=== PATIENT | male | born 1950 | race Caucasian/White ===

== ENCOUNTER 2018-08-29 13:20 | Emergency (ER) | payer MEDICARE ==
[2018-08-29] MEDS ORDERED: KETOROLAC TROMETHAMINE 30MG/ML ONE (14:16)
[2018-08-29] MEDS ORDERED: DEXAMETHASONE SOD PHOSPHATE 10MG/ML 1ML VIAL ONE (14:16)
[2018-08-29] MEDS ORDERED: LIDOCAINE 5% TOPICAL PATCH TP ONE (14:16)
== END 2018-08-29 15:29 | disposition home or self-care (01) ==
LOC: EDH 13:20
DX: M25.551 Pain in right hip (principal); I10 Essential (primary) hypertension; Z72.0 Tobacco use
CPT/HCPCS: 73502; 96372 ×2; 99284; J1100; J1885

== ENCOUNTER → 2019-08-02 | Outpatient (CLI) | payer MEDICARE, OTHER ==
[~2019-08-02] MED LIST: IOHEXOL-350 75 ML VIAL IV ONE
== END | disposition home or self-care (01) ==
LOC: RAH 08:54
PROVIDERS: ATTEND Internal Medicine Gastroenterology
DX: N28.1 Cyst of kidney, acquired (principal); K70.30 Alcoholic cirrhosis of liver without ascites; K76.6 Portal hypertension; R93.3 Abnormal findings on diagnostic imaging of other parts of digestive tract
CPT/HCPCS: 74170; Q9967

== ENCOUNTER 2019-09-11 08:25 | Emergency (ER) | payer OTHER ==
[2019-09-11] MEDS ORDERED: LIDOCAINE HCL-MPF 1% 2ML VIAL ONE (08:47)
[2019-09-11] MEDS ORDERED: KETOROLAC TROMETHAMINE 60 MG/2 ML VIAL ONE (08:47)
[2019-09-11] MEDS ORDERED: CEFTRIAXONE SODIUM 1 GM ONE (08:47)
== END 2019-09-11 09:24 | disposition home or self-care (01) ==
LOC: EDH 08:25
DX: L03.114 Cellulitis of left upper limb (principal); I10 Essential (primary) hypertension; Z72.0 Tobacco use
CPT/HCPCS: 96372 ×2; 99284; J0696; J1885; J3490

== ENCOUNTER 2020-02-24 20:42 | Inpatient (IN) | payer OTHER ==
[~2020-02-24] VITALS: Ht 182.9 cm; Wt 67.8 kg
[2020-02-24] MEDS ORDERED: CEFTRIAXONE SODIUM 2 GM VIAL ONE (21:02)
[2020-02-24] MEDS ORDERED: SODIUM CHLORIDE 0.9% 100 ML IV ONE (21:03)
[2020-02-24 21:09] LABS: BASOPHILS % (AUTO) 0.4 % (0.0-5.0); EOSINOPHILS % (AUTO) 0.4 % (0.0-8.0); HEMATOCRIT 42.9 % (42-54); LYMPHOCYTES % (AUTO) 19.8 % (21.0-51.0); MEAN CORPUSCULAR HEMOGLOBIN 31.4 pg (27.0-33.0); MEAN CORPUSCULAR HGB CONC 35.4 g/dL (32.0-36.0); MEAN CORPUSCULAR VOLUME 88.6 fL (79-99); MONOCYTES % (AUTO) 15.7 % (3.0-13.0); NEUTROPHILS % (AUTO) 63.4 % (40.0-77.0); PLATELET COUNT (AUTO) 103 K/uL (130-400); RED BLOOD CELL COUNT(AUTO) 4.84 MIL/uL (4.50-6.20); RED CELL DISTRIBUTION WIDTH 12.7 % (11.0-15.5); WHITE BLOOD COUNT (AUTO) 11.6 K/uL (4.8-10.8)
[2020-02-24 21:18] LABS: INR 1.03 (0.85-1.15); PROTHROMBIN TIME 11.1 SEC (9.6-11.6)
[2020-02-24 21:26] LABS: ALBUMIN 3.4 g/dL (3.5-5.0); BILIRUBIN,TOTAL 1.9 mg/dL (0.2-1.0); CREATININE 0.9 mg/dL (0.5-1.5); POTASSIUM 3.7 mmol/L (3.5-5.1); TOTAL PROTEIN, SERUM 8.4 g/dL (6.0-8.3)
[2020-02-24 21:33] LABS: PARTIAL THROMBOPLASTIN TIME 25.7 SEC (26.3-35.5)
[2020-02-24] MEDS ORDERED: KETOROLAC TROMETHAMINE 15MG/ML ONE (21:47)
[2020-02-24 22:13] LABS: APPEARANCE,URINE Clear (CLEAR); BILIRUBIN,URINE Negative (NEGATIVE); COLOR,URINE Dark Yellow (YELLOW); GLUCOSE, URINE (UA) 250 mg/dL (NEGATIVE); KETONES,URINE Negative (NEGATIVE); LEUKOCYTE ESTERASE ,URINE Small (NEGATIVE); NITRATE,URINE Negative (NEGATIVE); OCCULT BLOOD,URINE Negative (NEGATIVE); PH,URINE 7.5 (5.0-8.0); PROTEIN,URINE Trace mg/dL (NEGATIVE)
[2020-02-24 22:30] LABS: BACTERIA,URINE Rare /HPF (None Seen); RBC,URINE 0-1 /HPF (0-1)
[2020-02-24 22:31] LABS: MUCUS,URINE Rare LPF (None Seen); SQUAMOUS EPITHELIAL CELL,UR Rare /HPF (0-2)
[2020-02-24 22:50] VITALS: BP 127/84
[2020-02-24] MEDS ORDERED: NITROGLYCERIN 0.4 MG SL TAB SL PRN (23:15)
[2020-02-24] MEDS: SODIUM CHLORIDE 0.9% 1000ML 1,000 ML IV SCH (23:15)
[2020-02-24] MEDS ORDERED: LIDOCAINE HCL-MPF 1% 2ML VIAL IJ PRN (23:15)
[2020-02-24] MEDS ORDERED: ACETAMINOPHEN 325 MG TAB PO PRN ×2 (23:15)
[2020-02-24] MEDS ORDERED: LACTULOSE 20 GM/30 ML UDCUP PO ONE (23:15)
[2020-02-24] MEDS ORDERED: MAGNESIUM 2GM PREMIX 50ML 50 ML IV PRN (23:15)
[2020-02-24] MEDS ORDERED: DIPHENHYDRAMINE HCL 25 MG CAPSULE PO PRN (23:15)
[2020-02-24] MEDS ORDERED: ONDANSETRON HCL 4 MG/2 ML VIAL IV PRN (23:15)
[2020-02-24] MEDS ORDERED: POTASSIUM CHLORIDE 20MEQ/100ML 100 ML IV PRN (23:15)
[2020-02-24] MEDS ORDERED: MORPHINE SULFATE 2 MG/ML 1ML SYG ONE (23:29)
[2020-02-25 00:50] LABS: AMPHET/METH SCREEN,URINE NEGATIVE (NEGATIVE); BARBITURATE SCREEN, URINE NEGATIVE (NEGATIVE); BENZODIAZEPINES SCREEN,URINE NEGATIVE (NEGATIVE); CANNABINOID SCREEN,URINE NEGATIVE (NEGATIVE); COCAINE SCREEN,URINE POSITIVE (NEGATIVE); OPIATE SCREEN,URINE NEGATIVE (NEGATIVE); PHENCYCLIDINE SCREEN,URINE NEGATIVE (NEGATIVE)
--- NOTE | 2020-02-25 01:37 | NUR ---
COVID RAPID RESULTS RETURNED "PRESUMPTIVE NEGATIVE". PCR PENDING RESULTS.
[2020-02-25] MEDS ORDERED: LACTULOSE 20 GM/30 ML UDCUP ONE (02:32)
[2020-02-25] MEDS: POTASSIUM CHLORIDE 20 MEQ ERTAB PO SCH ×2 (03:09→23:30)
[2020-02-25] MEDS: MORPHINE SULFATE 2 MG/ML 1ML SYG IVP PRN ×3 (03:33→19:05)
[2020-02-25 03:58] VITALS: BP 139/83
[2020-02-25 06:00] LABS: HEMATOCRIT 38.3 % (42-54); MEAN CORPUSCULAR HEMOGLOBIN 30.9 pg (27.0-33.0); MEAN CORPUSCULAR HGB CONC 34.2 g/dL (32.0-36.0); MEAN CORPUSCULAR VOLUME 90.3 fL (79-99); PLATELET COUNT (AUTO) 79 K/uL (130-400); RED BLOOD CELL COUNT(AUTO) 4.24 MIL/uL (4.50-6.20); RED CELL DISTRIBUTION WIDTH 12.7 % (11.0-15.5); WHITE BLOOD COUNT (AUTO) 7.9 K/uL (4.8-10.8)
[2020-02-25 06:20] LABS: ALBUMIN 2.8 g/dL (3.5-5.0); BILIRUBIN,TOTAL 1.7 mg/dL (0.2-1.0); CREATININE 0.8 mg/dL (0.5-1.5); MAGNESIUM 2.1 mg/dL (1.80-2.40); POTASSIUM 3.9 mmol/L (3.5-5.1); TOTAL PROTEIN, SERUM 7.3 g/dL (6.0-8.3)
[2020-02-25 06:27] LABS: INR 1.06 (0.85-1.15); PARTIAL THROMBOPLASTIN TIME 26.4 SEC (26.3-35.5); PROTHROMBIN TIME 11.4 SEC (9.6-11.6)
[2020-02-25 07:48] VITALS: BP 134/82
[2020-02-25 08:14] LABS: LYMPHOCYTES % (MANUAL) 21 % (22-44); MAN.DIFF COMMENT-IMPRESSION MANUAL DIFFERENTIAL; MONOCYTES % (MANUAL) 12 % (2-9); SEGMENTED NEUTROPHILS % 67 % (40-70)
[2020-02-25] MEDS: SODIUM CHLORIDE 0.9% 1000ML 1,000 ML IV SCH ×2 (09:15→20:44)
[2020-02-25] MEDS: FAMOTIDINE/PF 20 MG/2 ML VIAL IV SCH ×2 (10:13→20:40)
[2020-02-25] MEDS: CEFTRIAXONE SODIUM 1 GM IVP SCH (10:15)
--- NOTE | 2020-02-25 10:50 | NUR ---
Positive UDS Cocaine-Referral from nursing SW met with pt. who is awake, alert, oriented and pleasant. Pt. reports that he is single, resides alone and is independent with ADL's. Pt. has no HH or Provider services. All utilities reportedly connected in the home and pt. has [employer]. Pt. denies any history of mental health illness; no thoughts of harm to self or others. Pt. admits to history of using cocaine 3-4times a month and marijuana since teenager; admits to etoh use and cigars on weekends. Pt. declined having any addictions and declined services or information for services, stating that he is "an old Hippy". Pt. reports a strong support system among family and friends. Dtr. Lesley will provide transportation home at discharge. Pt. is retired from [employer] twice and states he is enjoying his intermediate. \\ Pt. voiced no SS needs or concerns. Pt. feels safe to return home at discharge. Addendum: 02/25/20 at 1514 by CAROL BENAVIDES SS Amended: Links added.
[2020-02-25 11:03] VITALS: BP 137/91
--- NOTE | 2020-02-25 12:00 | NUR ---
DR ATWOOD aware of consult call her with hida scan results
--- NOTE | 2020-02-25 16:25 | NUR ---
1600 patient not in room, unable to have TRENT Letter signed.
--- NOTE | 2020-02-25 19:08 | NUR ---
DCP CM spoke to pt discussed dc plans. Pt is independent prior to admission, lives at home alone. Denies any other equipments/services. Feels safe to go back home, still drives and arranges own needs. DC plan to home once stable. CM to continue to follow up. Addendum: 02/25/20 at 1909 by HARSH MORALEZ LVN CM Amended: Links added.
[2020-02-25 20:08] VITALS: BP 158/109
[2020-02-26] VITALS (7 sets, daily range): BP systolic 124–154; BP diastolic 74–94
[2020-02-26] MEDS: MORPHINE SULFATE 2 MG/ML 1ML SYG IVP PRN ×2 (02:21→10:33)
[2020-02-26 04:28] LABS: BASOPHILS % (AUTO) 0.4 % (0.0-5.0); EOSINOPHILS % (AUTO) 2.5 % (0.0-8.0); HEMATOCRIT 38.7 % (42-54); LYMPHOCYTES % (AUTO) 24.9 % (21.0-51.0); MEAN CORPUSCULAR HEMOGLOBIN 31.4 pg (27.0-33.0); MEAN CORPUSCULAR HGB CONC 34.9 g/dL (32.0-36.0); MONOCYTES % (AUTO) 16.8 % (3.0-13.0); NEUTROPHILS % (AUTO) 55.1 % (40.0-77.0); PLATELET COUNT (AUTO) 87 K/uL (130-400); RED CELL DISTRIBUTION WIDTH 12.8 % (11.0-15.5); WHITE BLOOD COUNT (AUTO) 7.1 K/uL (4.8-10.8)
[2020-02-26 04:37] LABS: CREATININE 0.8 mg/dL (0.5-1.5); POTASSIUM 3.8 mmol/L (3.5-5.1)
[2020-02-26] MEDS: SODIUM CHLORIDE 0.9% 1000ML 1,000 ML IV SCH ×2 (06:14→15:08)
[2020-02-26] MEDS: FAMOTIDINE/PF 20 MG/2 ML VIAL IV SCH ×3 (09:47→21:00)
[2020-02-26] MEDS: CEFTRIAXONE SODIUM 1 GM IVP SCH (09:47)
--- NOTE | 2020-02-26 14:30 | NUR ---
PT REQUEST TO GO DOWNSTAIRS AND SMOKE SAID HE KNEW HIS RIGHTS AND ASKED TO ASK TO GO SMOKE. NOTIFIED ALEX REGARDING PT'S REQUEST. ALEX REPORTS OK. SPOKE WITH SECURITY, BRO AND REPORTS PT CAN GO THROUGH ER AND IF [employer] GOES W PT, MAY TAKE PT TO THE BACK DESIGNATED SMOKING AREA. PT SAID HE WAS GOING AND INFORMED PT TO GO THROUGH ER. PT VERBALIZED UNDERSTANDING.
--- NOTE | 2020-02-26 14:39 | NUR ---
1400 patient signed TRENT Letter, I faxed TRENT Letter to [phone] and placed in chart under consent tab.
--- NOTE | 2020-02-26 14:50 | NUR ---
PT RETURNED TO ROOM. NO DISTRESS. PT REPORTS HE FEELS BETTER AFTER SMOKING. CONTINUES TO REPORT MILD TENDERNESS TO RIGHT MID ABDOMEN OTHERWISE TOLERATED CLEAR LIQUID DIET WELL. WILL CONTINUE TO MONITOR.
--- NOTE | 2020-02-26 20:35 | NUR ---
REFUSAL FOR PIV ACCESS AND TELEMETRY MONITORING. INFORMED PT THAT AN IV WAS NEEDED TO ADMIN ANTIBIOTICS WHIC HE NEEDS FOR HIS CHOLECYSTITIS AND PT VERBALIZED HE IS GOING HOME TOMORROW AND DOES NOT NEED IT ANYMORE. PT STATES HE "HAS A HEALTHY HEART" AND DOES NOT NEED TO MONITOR HIS HEART. ENCOURAGED THE PT TO WEAR THE MONITOR UNTIL DC, PT CONT TO REFUSE. A REFUSAL FORM FOR TELEMETRY AND PIV ACCES WAS SIGNED. MAGDALENO Akhtar PROFESSOR OF [employer] MADE AWARE.
[2020-02-26] MEDS ORDERED: AMIL5TAB8 PO (20:40)
[2020-02-27] MEDS: SODIUM CHLORIDE 0.9% 1000ML 1,000 ML IV SCH ×2 (01:15→07:43)
[2020-02-27 03:45] VITALS: BP 153/89
--- NOTE | 2020-02-27 05:32 | NUR ---
REFUSED PT REFUSED LAB DRAW THIS AM. INSTRUCTED THE IMPORTANCE OF LAB DRAWS TO MONITOR TRENDS, PT CONT TO REFUSE. WILL HAVE PT SIGN REFUSAL FORM.
[2020-02-27 07:30] VITALS: BP 145/83
[2020-02-27] MEDS: CEFTRIAXONE SODIUM 1 GM IVP SCH (07:43)
[2020-02-27 08:20] LABS: BASOPHILS % (AUTO) 0.6 % (0.0-5.0); EOSINOPHILS % (AUTO) 1.8 % (0.0-8.0); MEAN CORPUSCULAR HEMOGLOBIN 31.3 pg (27.0-33.0); MEAN CORPUSCULAR HGB CONC 34.7 g/dL (32.0-36.0); MEAN CORPUSCULAR VOLUME 90.2 fL (79-99); MONOCYTES % (AUTO) 14.2 % (3.0-13.0); NEUTROPHILS % (AUTO) 61.2 % (40.0-77.0); PLATELET COUNT (AUTO) 131 K/uL (130-400); RED BLOOD CELL COUNT(AUTO) 4.99 MIL/uL (4.50-6.20); RED CELL DISTRIBUTION WIDTH 12.9 % (11.0-15.5); WHITE BLOOD COUNT (AUTO) 8.4 K/uL (4.8-10.8)
[2020-02-27 08:33] LABS: CREATININE 0.9 mg/dL (0.5-1.5); POTASSIUM 3.7 mmol/L (3.5-5.1)
[2020-02-27 11:00] VITALS: BP 138/84
--- NOTE | 2020-02-27 14:32 | NUR ---
105 PATIENT SIGNED IM LETTER, IM LETTER FAXED TO [phone] AND PLACED IN CHART UNDER CONSENT TAB.
== END 2020-02-27 13:00 | disposition home or self-care (01) | DRG 445 ==
LOC: EDH 20:42 → EDHIP 22:09 → OBSVTOIN 22:09 → INTOOBSV 22:09 → 3BH 22:34
PROVIDERS: ADMIT Internal Medicine; ATTEND Internal Medicine
DX: K80.00 Calculus of gallbladder with acute cholecystitis without obstruction (principal); N39.0 Urinary tract infection, site not specified; I85.10 Secondary esophageal varices without bleeding; K76.6 Portal hypertension; K74.60 Unspecified cirrhosis of liver; F12.90 Cannabis use, unspecified, uncomplicated; F14.90 Cocaine use, unspecified, uncomplicated; F17.290 Nicotine dependence, other tobacco product, uncomplicated; I10 Essential (primary) hypertension; I49.3 Ventricular premature depolarization; K44.9 Diaphragmatic hernia without obstruction or gangrene; K59.00 Constipation, unspecified; R16.1 Splenomegaly, not elsewhere classified; N20.0 Calculus of kidney; N28.1 Cyst of kidney, acquired; Z20.828 Contact with and (suspected) exposure to other viral communicable diseases; Z96.641 Presence of right artificial hip joint; Z87.442 Personal history of urinary calculi
CPT/HCPCS: 36415; 74176; 76705; 78226; 80048; 80053; 80061; 80305; 81001; 82140; 82150; 82550; 83605; 83690; 83735; 84484; 85025; 85610; 85730; 87040; 87088; 87426; 93005; A9537; J0696; J1885; J3475; J3490; J7030; U0003; G0378

== ENCOUNTER 2021-09-18 12:09 | Emergency (ER) | payer OTHER ==
[~2021-09-18] VITALS: Ht 177.8 cm; Wt 70.3 kg
[~2021-09-18 12:09] MED LIST changes: +AMIL5TAB8 PO; -IOHEXOL-350 75 ML VIAL IV ONE
[2021-09-18] MEDS ORDERED: 0.9%NACL 1000ML 1,000 ML IV SCH (12:30)
[2021-09-18] MEDS ORDERED: MORPHINE 4 MG SYG IVP SCH (12:30)
[2021-09-18] MEDS ORDERED: ONDANSETRON 4MG INJ IVP SCH (12:30)
[2021-09-18 12:33] LABS: BASOPHILS % (AUTO) 0.7 % (0.0-5.0); EOSINOPHILS % (AUTO) 0.8 % (0.0-8.0); HEMATOCRIT 43.8 % (42-54); LYMPHOCYTES % (AUTO) 19.6 % (21.0-51.0); MEAN CORPUSCULAR HEMOGLOBIN 32.7 pg (27.0-33.0); MEAN CORPUSCULAR HGB CONC 34.7 g/dL (32.0-36.0); MEAN CORPUSCULAR VOLUME 94.2 fL (79-99); MONOCYTES % (AUTO) 8.5 % (3.0-13.0); NEUTROPHILS % (AUTO) 69.9 % (40.0-77.0); PLATELET COUNT (AUTO) 127 K/uL (130-400); RED BLOOD CELL COUNT(AUTO) 4.65 MIL/uL (4.50-6.20); RED CELL DISTRIBUTION WIDTH 13.2 % (11.0-15.5); WHITE BLOOD COUNT (AUTO) 7.7 K/uL (4.8-10.8)
[2021-09-18 12:47] LABS: CREATININE 0.8 mg/dL (0.5-1.5); POTASSIUM 3.9 mmol/L (3.5-5.1)
[2021-09-18 12:51] LABS: ALBUMIN 3.9 g/dL (3.5-5.0); BILIRUBIN,TOTAL 1.5 mg/dL (0.2-1.0); TOTAL PROTEIN, SERUM 7.5 g/dL (6.0-8.3)
[2021-09-18] MEDS ORDERED: ACET-2079 PO (17:01)
[2021-09-18 17:43] VITALS: BP 134/87
== END 2021-09-18 17:45 | disposition home or self-care (01) ==
LOC: EDH 12:09
DX: M25.551 Pain in right hip (principal); Z96.641 Presence of right artificial hip joint; E86.0 Dehydration; Y93.55 Activity, bike riding; V18.4XXA Pedal cycle driver injured in noncollision transport accident in traffic accident, initial encounter; Y93.89 Activity, other specified; Y92.89 Other specified places as the place of occurrence of the external cause; Y99.8 Other external cause status
CPT/HCPCS: 36415; 71045; 73502; 80053; 84484; 85025; 93005; 96361; 96374; 96375; 99285; J2270; J2405; J7030

== ENCOUNTER 2022-12-28 21:50 | Emergency (ER) | payer OTHER ==
[~2022-12-28] VITALS: Ht 177.8 cm; Wt 68.9 kg
[~2022-12-28 21:50] MED LIST changes: -AMIL5TAB8 PO; +AMLO-257 PO; +CEPH500C2 PO; +METF-444 PO; +TAMS-1 PO
[2022-12-29] MEDS ORDERED: ONDANSETRON 4MG INJ IVP ONE (00:30)
[2022-12-29] MEDS ORDERED: MORPHINE 2 MG SYG IVP ONE (00:30)
[2022-12-29] MEDS ORDERED: 0.9%NACL 1000ML 1,000 ML IV ONE (00:30)
[2022-12-29 00:35] LABS: BASOPHILS # (AUTO) 0.05 K/uL (0.00-0.20); BASOPHILS % (AUTO) 0.4 % (0.0-5.0); EOSINOPHILS # (AUTO) 0.21 K/uL (0.00-0.70); EOSINOPHILS % (AUTO) 1.6 % (0.0-8.0); HEMATOCRIT 43.6 % (42-54); IMMATURE GRANULOCYTE ABSOLUTE 0.05 K/uL (0-1); LYMPHOCYTES # (AUTO) 1.4 K/uL (1.0-4.8); LYMPHOCYTES % (AUTO) 10.6 % (21.0-51.0); MEAN CORPUSCULAR HGB CONC 35.1 g/dL (32.0-36.0); MEAN CORPUSCULAR VOLUME 91.2 fL (79-99); MONOCYTES # (AUTO) 1.2 K/uL (0.1-1.0); MONOCYTES % (AUTO) 8.9 % (3.0-13.0); NEUTROPHILS # (AUTO) 10.3 K/uL (1.8-7.7); NEUTROPHILS % (AUTO) 78.1 % (40.0-77.0); PLATELET COUNT (AUTO) 141 K/uL (130-400); RED BLOOD CELL COUNT(AUTO) 4.78 MIL/uL (4.50-6.20); RED CELL DISTRIBUTION WIDTH 12.7 % (11.0-15.5); WHITE BLOOD COUNT (AUTO) 13.2 K/uL (4.8-10.8)
[2022-12-29 00:45] LABS: ADD UA MICROSCOPIC YES; APPEARANCE,URINE CLOUDY (CLEAR); BILIRUBIN,URINE NEGATIVE (NEGATIVE); COLOR,URINE YELLOW (YELLOW); GLUCOSE, URINE (UA) 150 mg/dL (NEGATIVE); KETONES,URINE NEGATIVE (NEGATIVE); LEUKOCYTE ESTERASE ,URINE 500 Leu/uL (NEGATIVE); NITRATE,URINE NEGATIVE (NEGATIVE); OCCULT BLOOD,URINE LARGE (NEGATIVE); PH,URINE 5.5 (5.0-8.0); PROTEIN,URINE 50 mg/dL (NEGATIVE); UROBILINOGEN,URINE 0.2 mg/dL (0.2-1.0)
[2022-12-29 00:47] LABS: CREATININE 0.7 mg/dL (0.5-1.5); POTASSIUM 3.8 mmol/L (3.5-5.1)
[2022-12-29 00:48] LABS: CALCIUM OXALATE CRYSTALS,UR RARE /LPF (None Seen); MUCUS,URINE RARE LPF (None Seen); RBC,URINE TNTC /HPF (0-1); WBC,URINE TNTC /HPF (0-1); YEAST,URINE BUDDING RARE /HPF (None Seen)
[2022-12-29 00:52] LABS: ALBUMIN 3.6 g/dL (3.5-5.0); BILIRUBIN,TOTAL 1.2 mg/dL (0.2-1.0); TOTAL PROTEIN, SERUM 7.5 g/dL (6.0-8.3)
[2022-12-29] MEDS ORDERED: IBUP-1493 PO (01:16)
[2022-12-29] MEDS ORDERED: CEFU500T67 PO (01:16)
[2022-12-29] MEDS ORDERED: TAMS-1 PO (01:16)
[2022-12-29 03:24] VITALS: BP 142/80; PULSE 59; RESP 18; O2SAT 99
== END 2022-12-29 03:25 | disposition home or self-care (01) ==
LOC: EDH 21:50
DX: R10.32 Left lower quadrant pain (principal); R31.9 Hematuria, unspecified; E11.9 Type 2 diabetes mellitus without complications; E78.00 Pure hypercholesterolemia, unspecified; I10 Essential (primary) hypertension; Z79.84 Long term (current) use of oral hypoglycemic drugs
CPT/HCPCS: 99285; 84484; 80053; 85025; 87088; 81001; 36415; 74176; 96374; 96361; 96375; J2270; J7030; J2405

== ENCOUNTER 2023-01-19 02:50 | Emergency (ER) | payer OTHER ==
[~2023-01-19] VITALS: Ht 177.8 cm; Wt 68.9 kg
[~2023-01-19 02:50] MED LIST changes: +CEFU500T67 PO; +IBUP-1493 PO
[2023-01-19 03:22] LABS: APPEARANCE,URINE CLOUDY (CLEAR); BILIRUBIN,URINE NEGATIVE (NEGATIVE); COLOR,URINE ORANGE (YELLOW); GLUCOSE, URINE (UA) 250 mg/dL (NEGATIVE); KETONES,URINE NEGATIVE (NEGATIVE); LEUKOCYTE ESTERASE ,URINE MODERATE Leu/uL (NEGATIVE); NITRATE,URINE NEGATIVE (NEGATIVE); OCCULT BLOOD,URINE LARGE (NEGATIVE); PROTEIN,URINE >=300 mg/dL (NEGATIVE)
[2023-01-19 03:26] LABS: ADD UA MICROSCOPIC YES
[2023-01-19 03:30] LABS: BACTERIA,URINE Rare /HPF (None Seen); MUCUS,URINE Rare LPF (None Seen); RBC,URINE 51-100 /HPF (0-1); SQUAMOUS EPITHELIAL CELL,UR Rare /HPF (0-2); WBC,URINE 26-50 /HPF (0-1); YEAST,URINE BUDDING Many /HPF (None Seen); YEAST,URINE HYPHAE None Seen /HPF (None Seen)
[2023-01-19] MEDS ORDERED: KETOROLAC 30MG VIAL (30MG/ML) IVP ONE (04:00)
[2023-01-19] MEDS ORDERED: FAMOTIDINE 20MG VIAL IV ONE (04:00)
[2023-01-19] MEDS ORDERED: CEFTRIAXONE 2GM VIAL IVPB ONE (04:00)
[2023-01-19] MEDS ORDERED: TAMSULOSIN HCL 0.4 MG CAP.ER.24H PO ONE (04:00)
[2023-01-19] MEDS ORDERED: METOCLOPRAMIDE 10 MG/2 ML VIAL IVP ONE (04:00)
[2023-01-19] MEDS ORDERED: 0.9%NACL 1000ML 1,000 ML IV ONE (04:00)
[2023-01-19] MEDS ORDERED: CEPH500B PO (04:50)
[2023-01-19 05:59] VITALS: BP 135/75; PULSE 89; RESP 18; O2SAT 99
== END 2023-01-19 05:57 | disposition home or self-care (01) ==
LOC: EDH 02:50
DX: N39.0 Urinary tract infection, site not specified (principal); R33.9 Retention of urine, unspecified; Z87.442 Personal history of urinary calculi; Z96.641 Presence of right artificial hip joint
CPT/HCPCS: 99284; 96365; 96375; 87088; 81001; J3490; J7030; J0696; J1885; J2765

== ENCOUNTER 2023-04-20 09:10 | Emergency (ER) | payer OTHER ==
[~2023-04-20] VITALS: Ht 177.8 cm; Wt 68.0 kg
[~2023-04-20 09:10] MED LIST changes: +CEPH500B PO
[2023-04-20 09:48] LABS: BASOPHILS # (AUTO) 0.04 K/uL (0.00-0.20); BASOPHILS % (AUTO) 0.3 % (0.0-5.0); EOSINOPHILS # (AUTO) 0.06 K/uL (0.00-0.70); EOSINOPHILS % (AUTO) 0.5 % (0.0-8.0); HEMATOCRIT 43.5 % (42-54); IMMATURE GRANULOCYTE ABSOLUTE 0.06 K/uL (0-1); LYMPHOCYTES # (AUTO) 1.7 K/uL (1.0-4.8); LYMPHOCYTES % (AUTO) 13.5 % (21.0-51.0); MEAN CORPUSCULAR HEMOGLOBIN 32.7 pg (27.0-33.0); MEAN CORPUSCULAR HGB CONC 34.7 g/dL (32.0-36.0); MEAN CORPUSCULAR VOLUME 94.2 fL (79-99); NEUTROPHILS # (AUTO) 8.8 K/uL (1.8-7.7); NEUTROPHILS % (AUTO) 69.2 % (40.0-77.0); PLATELET COUNT (AUTO) 133 K/uL (130-400); RED BLOOD CELL COUNT(AUTO) 4.62 MIL/uL (4.50-6.20); RED CELL DISTRIBUTION WIDTH 13.5 % (11.0-15.5); WHITE BLOOD COUNT (AUTO) 12.7 K/uL (4.8-10.8)
[2023-04-20 09:54] LABS: CREATININE 0.8 mg/dL (0.5-1.5)
[2023-04-20 10:00] LABS: ALBUMIN 3.4 g/dL (3.5-5.0); BILIRUBIN,TOTAL 2.4 mg/dL (0.2-1.0); TOTAL PROTEIN, SERUM 7.4 g/dL (6.0-8.3)
[2023-04-20] MEDS ORDERED: GABA-529 PO (11:40)
[2023-04-20 12:15] LABS: APPEARANCE,URINE CLEAR (CLEAR); BILIRUBIN,URINE NEGATIVE (NEGATIVE); COLOR,URINE YELLOW (YELLOW); GLUCOSE, URINE (UA) 70 mg/dL (NEGATIVE); KETONES,URINE NEGATIVE (NEGATIVE); LEUKOCYTE ESTERASE ,URINE NEGATIVE Leu/uL (NEGATIVE); NITRATE,URINE NEGATIVE (NEGATIVE); OCCULT BLOOD,URINE NEGATIVE (NEGATIVE); PROTEIN,URINE NEGATIVE (NEGATIVE); UROBILINOGEN,URINE 0.2 mg/dL (0.2-1.0)
[2023-04-20 12:16] LABS: ADD UA MICROSCOPIC YES
[2023-04-20 12:22] LABS: MUCUS,URINE RARE LPF (None Seen); SQUAMOUS EPITHELIAL CELL,UR RARE /HPF (0-2)
[2023-04-20] MEDS ORDERED: KETOROLAC 30MG VIAL (30MG/ML) IVP ONE (12:30)
[2023-04-20 16:33] VITALS: BP 135/75; PULSE 75; RESP 16; O2SAT 98
== END 2023-04-20 16:55 | disposition home or self-care (01) ==
LOC: EDH 09:10
DX: R10.13 Epigastric pain (principal); K80.20 Calculus of gallbladder without cholecystitis without obstruction; I10 Essential (primary) hypertension; E11.9 Type 2 diabetes mellitus without complications; Z79.84 Long term (current) use of oral hypoglycemic drugs; Z79.899 Other long term (current) drug therapy; Z98.890 Other specified postprocedural states
CPT/HCPCS: 99285; 74176; 96374; 76705; 80053; 83690; 85025; 81001; 36415; J1885